=== PATIENT | male | born 1955 | race Caucasian/White ===

== ENCOUNTER 2017-01-13 16:06 | Emergency (ER) | payer OTHER ==
[~2017-01-13] VITALS: Ht 180.3 cm; Wt 110.4 kg
[~2017-01-13 16:06] MED LIST: CYCL-36 PO; DICL.1%O TOPICAL; HYDR200T3 PO; IBUP800T23 PO; LISI-363 PO; PERC5TAB12 PO; SERT-129 PO; SIMV20TA PO; WELL150T PO
[2017-01-13 16:11] VITALS: BP 109/64; PULSE 76; RESP 16; TEMP 98; O2SAT 98
[2017-01-13] MEDS ORDERED: SODIUM CHLOR 0.9% 1000 ML INJ 1,000 ML IV SCH (16:29)
[2017-01-13] MEDS ORDERED: SODIUM CHLORIDE 0.9% FLUSH 5 ML FLUSH IV FLUSH PRN (16:30)
[2017-01-13] MEDS ORDERED: KETOROLAC TROMETHAMINE 30 MG/ML (IVP) VIAL IV PUSH ONE (16:30)
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
[2017-01-13 16:40] VITALS: RESP 16; O2SAT 98
[2017-01-13] MEDS ORDERED: BUPR150CR PO (17:06)
[2017-01-13] MEDS ORDERED: SERT-129 PO (17:06)
[2017-01-13] MEDS ORDERED: DICL1GEL TOPICAL (17:06)
[2017-01-13] MEDS ORDERED: ZOCO80TA PO (17:06)
[2017-01-13] MEDS ORDERED: TRAZ150T75 PO (17:06)
[2017-01-13] MEDS ORDERED: LISI40TA PO (17:06)
[2017-01-13] MEDS ORDERED: CYCL1TAB29 PO (17:06)
[2017-01-13 17:15] LABS: AUTOMATED NEUTROPHIL # 3.4 TH/MM3 (1.8-7.7); BASOPHIL % 0.9 % (0.0-2.0); EOSINOPHIL # 0.2 TH/MM3 (0-0.4); EOSINOPHIL % 4.1 % (0.0-4.0); HEMATOCRIT 38.4 % (39.0-51.0); HEMO FLAGS DIFF FINAL; LYMPHOCYTE # 1.3 TH/MM3 (1.0-4.8); MEAN CELL VOLUME 86.2 FL (80.0-100.0); MEAN CORPUSCULAR HEMOGLOBIN 29.8 PG (27.0-34.0); MEAN CORPUSCULAR HGB CONC 34.5 % (32.0-36.0); MONO % 10.2 % (0.0-8.0); NEUT % 61.8 % (16.0-70.0); PLATELET COUNT 228 TH/MM3 (150-450); RED BLOOD COUNT 4.46 MIL/MM3 (4.50-5.90); RED CELL DISTRIBUTION WIDTH 12.6 % (11.6-17.2); WHITE BLOOD COUNT 5.5 TH/MM3 (4.0-11.0)
[2017-01-13 17:24] LABS: CHLORIDE 105 MEQ/L (98-107); POTASSIUM 3.8 MEQ/L (3.5-5.1); SODIUM (NA) 142 MEQ/L (136-145)
[2017-01-13 17:28] LABS: ANION GAP 8 MEQ/L (5-15); BICARBONATE 28.8 MEQ/L (21.0-32.0); BLOOD UREA NITROGEN 28 MG/DL (7-18)
[2017-01-13 17:30] LABS: ALT (GPT) 18 U/L (12-78)
[2017-01-13 17:31] LABS: AST (GOT) 9 U/L (15-37); GLOMERULAR FILTRATION RATE 48 ML/MIN (>89)
[2017-01-13 17:32] LABS: TOTAL BILIRUBIN ADULT 0.4 MG/DL (0.2-1.0)
[2017-01-13 17:33] LABS: ALKALINE PHOSPHATASE 62 U/L (45-117)
[2017-01-13 17:45] VITALS: BP 91/48; PULSE 73; RESP 16; O2SAT 97
[2017-01-13] MEDS ORDERED: SODIUM CHLOR 0.9% 1000 ML INJ 1,000 ML IV ONE (17:45)
[2017-01-13 17:53] VITALS: BP_SYST 102; BP_SYST 90; BP_SYST 99; BP_DIAS 48; BP_DIAS 49; BP_DIAS 55; RESP 18
[2017-01-13] MEDS ORDERED: ORPHENADRINE INJ 60 MG/2 ML AMP IM ONE (18:15)
[2017-01-13 18:38] VITALS: RESP 16
[2017-01-13 18:47] LABS: CREATINE KINASE 51 U/L (39-308)
[2017-01-13 19:13] VITALS: BP 100/57
--- NOTE | 2017-01-14 19:42 | EKG ---
Date Performed: 01/13/2017 Time Performed: 16:31:08 PTAGE: 61 years EKG: Sinus rhythm Inferior infarct - age undetermined Low QRS voltages in precordial leads Abnormal ECG PREVIOUS TRACING : 10/02/2013 03.27 Compared to prior tracing no significant change DOCTOR: Toni Meyers Interpretating Date/Time 01/14/2017 19:41:50
== END 2017-01-13 19:27 | disposition home or self-care (01) ==
LOC: PHED 16:06
DX: R42 Dizziness and giddiness (principal); M54.2 Cervicalgia; N28.9 Disorder of kidney and ureter, unspecified; R94.31 Abnormal electrocardiogram [ECG] [EKG]; I10 Essential (primary) hypertension; R73.03 Prediabetes; E78.00 Pure hypercholesterolemia, unspecified; Z86.59 Personal history of other mental and behavioral disorders; Z87.448 Personal history of other diseases of urinary system; Z87.39 Personal history of other diseases of the musculoskeletal system and connective tissue; Z86.79 Personal history of other diseases of the circulatory system; Z87.19 Personal history of other diseases of the digestive system
CPT/HCPCS: 80053; 82550; 84484; 85025; 93005; 96361; 96372; 96374; 99284; J1885; J2360; J7030